=== PATIENT | female | born 1955 | race Caucasian/White ===

== ENCOUNTER 2017-03-13 14:01 | Emergency (ER) | payer OTHER ==
[~2017-03-13] VITALS: Ht 167.6 cm; Wt 106.1 kg
[~2017-03-13 14:01] MED LIST: ABAC300; ACET325 PO; ALBU90OI INH; ALPR.5 PO; AMIT50 PO; AMLO10 PO; AMLO5 PO; AMOCLA875 PO; ARIP10 PO; ASCO1ER PO; ATROVENT INH; AZIT500 PO; Albuterol2.5 MG/0.5 INH; Amitriptyline100 MG PO; B Complex1 EAC2 PO; BIOTIN1 MG PO; BISA5EC PO; BUDE6HFA INH; BUME2 PO; BUPR75 PO; CALCAVITD PO; CALGLU500 PO; CELE200; CELE200 PO; CLIN150 PO; CODACE30 PO; CODACE60 PO; CYAN1000 PO; Ceftin500 MG PO; Cipro500 MG PO; DOCU100 PO; ERGO400 PO; ESTR1; Esgic Tablet1 EACH PO; FERR325 PO; FLAX PO; FROV2.5 PO; FURO20 PO; GABA100 PO; GABA300; GABA300 PO; GLUC500 PO; HYDACE10B PO; HYDHCL25 PO; HYDR-86 PO; HYDR1TAB94 PO; HYOS.125 SL; Hydrocodone-Ap1 EA20 PO; K-Dur10 MEQ PO; LAMO100; LAMO100 PO; LAMO5 PO; LEVE500 PO; LEVO-T100 MCG PO; LEVOXYL PO; LEVSOD125 PO; LEVSOD25; LEVSOD75 PO; LEVSOD88 PO; LIDO5TP TOP; LIOT5 PO; LOPE2C PO; LORA.5; LORA.5 PO; LORA1; LORA1 PO; MAGGLU250 PO; MECL25 PO; META800 PO; MIDO5 PO; MORP15ER PO; MORPHABOND ER15 MG PO; MULVITA PO; Meribin5 MG PO; NITR.3SL; NYST100P TOP; Neurontin 300300 MG PO; Norco 10-325 T1 EACH PO; Norco 5-325 Ta1 EACH PO; OMEP10ER; OMEP10ER PO; ONDA4ODT PO; OXYACE5T PO; Omeprazole20 M1 PO; POTA10T PO; POTCHL10ER PO; PRAM.5; PRED10 PO; PRED5 PO; PROBIOTIC1 EAC1 PO; PROM25 PO; Percocet 5-3251 EACH PO; Prednisone10 MG PO; Prednisone2.5 MG PO; Prilosec Otc20 MG PO; QUET100 PO; QUET200; QUET200 PO; QUET300 PO; RANI150; RANI150 PO; ROPI.25 PO; ROPI1 PO; Ropinirole HCl0.5 MG PO; SERT100 PO; SPIR25 PO; STOMUL PO; SULTRIDS; SULTRIDS PO; TEMA15 PO; TEMA30 PO; TIZANIDINE HCL4 MG PO; TOCO400 PO; TRAM50 PO; TRIM100 PO; VALS80 PO; VICODIN 5-3001 EACH PO; VITB100 PO; VITB2 PO; Ventolin Soln3 ML INH; ZOLP10; ZOLP10 PO; ZOLP12.5 PO; ZOLP6.25 PO; Zanaflex2 M1 PO; Zanaflex4 MG PO; Zofran Odt4 MG SL; Zofran4 MG PO; [UNRECOGNIZED DRUG - CODE]; [UNRECOGNIZED DRUG - CODE] PO
[2017-03-13] MEDS ORDERED: Percocet 5-3251 EACH PO (14:47)
[2017-09-03] MEDS ORDERED: Zantac150 MG (09:21)
[2017-09-03] MEDS ORDERED: AMLO10 (09:21)
[2017-09-03] MEDS ORDERED: BUPR150ER (09:22)
[2017-09-03] MEDS ORDERED: BENZ100A (09:22)
[2017-09-03] MEDS ORDERED: NITR.4SL (09:22)
[2017-09-03] MEDS ORDERED: NYSTATIN1 EAC1 (09:22)
[2017-09-03] MEDS ORDERED: ALL DAY ALLERGY10 M1 (09:22)
[2017-09-03] MEDS ORDERED: LOSA25 (09:25)
== END 2017-03-13 15:00 | disposition home or self-care (01) ==
LOC: ER 14:01
DX: S42.292A Other displaced fracture of upper end of left humerus, initial encounter for closed fracture (principal); F31.9 Bipolar disorder, unspecified; Z88.6 Allergy status to analgesic agent; Z88.8 Allergy status to other drugs, medicaments and biological substances; Z88.1 Allergy status to other antibiotic agents; Z91.040 Latex allergy status; Z79.899 Other long term (current) drug therapy; Z90.710 Acquired absence of both cervix and uterus; W19.XXXA Unspecified fall, initial encounter
CPT/HCPCS: 29105; 73030; 73110; 99283

== ENCOUNTER 2017-03-15 10:44 | Emergency (ER) | payer OTHER ==
[~2017-03-15] VITALS: Ht 167.6 cm; Wt 104.3 kg
[2017-03-15 11:18] LABS: BASOPHILS ABSOLUTE AUTO 0.04 K/mm3 (0.00-0.23); BASOPHILS PERCENT AUTO 0 % (0-2); EOSINOPHILS ABSOLUTE AUTO 0.34 K/mm3 (0.00-0.68); EOSINOPHILS PERCENT AUTO 3 % (0-6); Hematocrit 33.9 % (33.0-51.0); Hemoglobin 10.1 g/dL (11.5-16.0); IMMATURE GRAN ABSOLUTE AUTO 0.05 K/mm3 (0.00-0.10); IMMATURE GRAN PERCENT AUTO 1 % (0-1); LYMPHOCYTES ABSOLUTE AUTO 1.69 K/mm3 (0.84-5.20); LYMPHOCYTES PERCENT AUTO 16 % (21-46); MONOCYTES ABSOLUTE AUTO 0.68 K/mm3 (0.16-1.47); MONOCYTES PERCENT AUTO 6 % (4-13); Mean Corpuscular HGB 27.8 pg (26.0-34.0); Mean Corpuscular HGB Conc 29.8 g/dL (31.5-36.5); Mean Corpuscular Volume 93 fL (80-100); Mean Platelet Volume 9.8 fL (9.1-12.4); NEUTROPHILS PERCENT AUTO 74 % (41-73); Platelet Count 172 K/mm3 (150-400); RDW Coefficient Variation 15.4 % (11.7-14.2); RDW Standard Deviation 53.3 fL (35.1-46.3); Red Blood Cell Count 3.63 M/mm3 (3.80-5.20)
[2017-03-15 11:19] LABS: PCO2 Arterial 52.2 mmHg (35-45); PO2 Arterial 112 mmHg (80-100)
[2017-03-15 11:20] LABS: pH Blood Arterial 7.25 (7.35-7.45)
[2017-03-15 11:42] LABS: Albumin/Globulin Ratio 0.8 (0.8-1.8); Bilirubin, Total 0.4 mg/dL (0.1-1.0); Calcium, Blood 8.2 mg/dL (8.5-10.1); Creatinine, Blood 3.07 mg/dL (0.40-1.00); Globulin, Blood 3.6 g/dL (2.2-4.0); Potassium, Blood 4.5 mmol/L (3.5-5.5); Total Protein, Blood 6.6 g/dL (6.4-8.2)
[2017-09-03] MEDS ORDERED: Zantac150 MG (09:21)
[2017-09-03] MEDS ORDERED: AMLO10 (09:21)
[2017-09-03] MEDS ORDERED: NITR.4SL (09:22)
[2017-09-03] MEDS ORDERED: BENZ100A (09:22)
[2017-09-03] MEDS ORDERED: BUPR150ER (09:22)
[2017-09-03] MEDS ORDERED: NYSTATIN1 EAC1 (09:22)
[2017-09-03] MEDS ORDERED: ALL DAY ALLERGY10 M1 (09:22)
[2017-09-03] MEDS ORDERED: LOSA25 (09:25)
== END 2017-03-15 14:27 | disposition home or self-care (01) ==
LOC: ER 10:44
PROVIDERS: Emergency Medicine
DX: T40.2X1A Poisoning by other opioids, accidental (unintentional), initial encounter (principal); I10 Essential (primary) hypertension; N28.9 Disorder of kidney and ureter, unspecified; G20 Parkinson's disease; F31.9 Bipolar disorder, unspecified; Z88.6 Allergy status to analgesic agent; Z88.1 Allergy status to other antibiotic agents; Z91.040 Latex allergy status; Z88.8 Allergy status to other drugs, medicaments and biological substances; Z79.899 Other long term (current) drug therapy; Z79.891 Long term (current) use of opiate analgesic
CPT/HCPCS: 36600; 70450; 71045; 80053; 82803; 85025; 96361; 96374; 99284; G0480; J2310; J7030

== ENCOUNTER 2017-04-27 16:05 | Emergency (ER) | payer OTHER ==
[~2017-04-27] VITALS: Ht 165.1 cm; Wt 101.6 kg
[2017-09-03] MEDS ORDERED: AMLO10 (09:21)
[2017-09-03] MEDS ORDERED: Zantac150 MG (09:21)
[2017-09-03] MEDS ORDERED: BUPR150ER (09:22)
[2017-09-03] MEDS ORDERED: BENZ100A (09:22)
[2017-09-03] MEDS ORDERED: NYSTATIN1 EAC1 (09:22)
[2017-09-03] MEDS ORDERED: NITR.4SL (09:22)
[2017-09-03] MEDS ORDERED: ALL DAY ALLERGY10 M1 (09:22)
[2017-09-03] MEDS ORDERED: LOSA25 (09:25)
== END 2017-04-27 17:46 | disposition home or self-care (01) ==
LOC: ER 16:05
DX: J06.9 Acute upper respiratory infection, unspecified (principal); J44.9 Chronic obstructive pulmonary disease, unspecified; I12.9 Hypertensive chronic kidney disease with stage 1 through stage 4 chronic kidney disease, or unspecified chronic kidney disease; N18.9 Chronic kidney disease, unspecified; F31.9 Bipolar disorder, unspecified; E03.9 Hypothyroidism, unspecified; E66.01 Morbid (severe) obesity due to excess calories; K21.9 Gastro-esophageal reflux disease without esophagitis; Z79.899 Other long term (current) drug therapy; Z68.37 Body mass index [BMI] 37.0-37.9, adult
CPT/HCPCS: 71046; 93005; 93010; 99283

== ENCOUNTER 2017-05-11 23:27 | Observation (INO) | payer OTHER ==
[~2017-05-11] VITALS: Ht 167.6 cm; Wt 105.5 kg
[2017-05-11 23:47] LABS: BASOPHILS ABSOLUTE AUTO 0.02 K/mm3 (0.00-0.23); BASOPHILS PERCENT AUTO 0 % (0-2); EOSINOPHILS ABSOLUTE AUTO 0.05 K/mm3 (0.00-0.68); EOSINOPHILS PERCENT AUTO 1 % (0-6); Hematocrit 30.9 % (33.0-51.0); Hemoglobin 9.1 g/dL (11.5-16.0); IMMATURE GRAN ABSOLUTE AUTO 0.09 K/mm3 (0.00-0.10); IMMATURE GRAN PERCENT AUTO 1 % (0-1); LYMPHOCYTES ABSOLUTE AUTO 0.53 K/mm3 (0.84-5.20); LYMPHOCYTES PERCENT AUTO 5 % (21-46); MONOCYTES ABSOLUTE AUTO 0.39 K/mm3 (0.16-1.47); MONOCYTES PERCENT AUTO 4 % (4-13); Mean Corpuscular HGB 28.1 pg (26.0-34.0); Mean Corpuscular HGB Conc 29.4 g/dL (31.5-36.5); Mean Corpuscular Volume 95 fL (80-100); NEUTROPHILS ABSOLUTE AUTO 9.42 K/mm3 (1.96-9.15); NEUTROPHILS PERCENT AUTO 90 % (41-73); Platelet Count 184 K/mm3 (150-400); RDW Coefficient Variation 14.4 % (11.7-14.2); RDW Standard Deviation 50.6 fL (35.1-46.3); Red Blood Cell Count 3.24 M/mm3 (3.80-5.20)
[2017-05-12 00:09] LABS: Alanine Aminotransfer (ALT/SGP 17 U/L (12-78); Albumin/Globulin Ratio 0.6 (0.8-1.8); Alk Phos 121 U/L (50-136); Anion Gap 11 mmol/L (6-16); Aspartate Aminotrans (AST/SGOT 34 U/L (12-37); Bilirubin, Total 0.3 mg/dL (0.1-1.0); Blood Urea Nitrogen 36 mg/dL (8-24); CO2, Blood 19 mmol/L (21-32); CPK Creatine Kinase 530 U/L (26-193); Calcium, Blood 6.9 mg/dL (8.5-10.1); Chloride, Blood 107 mmol/L (98-108); Ethanol (Alcohol), Blood, Med <3 mg/dL; Globulin, Blood 3.2 g/dL (2.2-4.0); Glomerular Filtration Rate 22 (60-); Glucose, Blood 99 mg/dL (70-99); Potassium, Blood 4.6 mmol/L (3.5-5.5); Sodium, Blood 137 mmol/L (136-145); Total Protein, Blood 5.2 g/dL (6.4-8.2)
[2017-05-12 00:16] LABS: Free Thyroxine 0.68 ng/dL (0.70-1.60); Triiodothyronine, Free 1.55 pg/mL (2.18-3.98)
[2017-05-12 00:23] LABS: Source, Urine Clean Catch
[2017-05-12 00:26] LABS: Bilirubin, Urine Neg (Neg); Blood, Urine Neg (Neg); Glucose Qualitative, Urine Neg (Neg); Ketones, Urine Neg (Neg); Leukocyte Esterase, Urine Neg (Neg); Nitrite, Urine Neg (Neg); Protein, Urine Neg (Neg); Urobilinogen, Urine NORM (Normal)
[2017-05-12 00:31] LABS: Appearance, Urine Clear (Clear); Color, Urine Yellow (P-Yellow)
[2017-05-12 00:33] LABS: Creatine Kinase MB 2.9 ng/mL (0.0-3.6); Creatine Kinase MB Index 0.5 (0.0-4.0)
[2017-05-12 00:37] LABS: U Amphetamine Screen Not Detected; U Barbituate Screen Not Detected; U Benzodiazapine Screen Not Detected; U Buprenorphine Screen Not Detected; U Cannabinoids Screen Not Detected; U Cocaine Screen Not Detected; U Methadone Screen Not Detected; U Methamphetamine Screen Not Detected; U Opiates Screen DETECTED; U Oxycodone Screen Not Detected; U Phencyclidine Screen Not Detected; U Propoxyphene Screen Not Detected
[2017-05-12] MEDS ORDERED: Zanaflex2 M1 PO (04:35)
[2017-05-12] MEDS ORDERED: MORP15ER PO (04:37)
[2017-05-12] MEDS ORDERED: AMIT50 PO (04:39)
[2017-05-12] MEDS ORDERED: TRIM100 PO (04:40)
[2017-05-12] MEDS ORDERED: HYDR-86 PO (04:42)
[2017-05-12 09:43] LABS: Albumin, Blood 2.4 g/dL (3.4-5.0); Anion Gap 8 mmol/L (6-16); Blood Urea Nitrogen 37 mg/dL (8-24); Bun/Creatinine Ratio 16.8 (12.0-20.0); CO2, Blood 23 mmol/L (21-32); Calcium, Blood 7.8 mg/dL (8.5-10.1); Chloride, Blood 105 mmol/L (98-108); Glomerular Filtration Rate 24 (60-); Glucose, Blood 96 mg/dL (70-99); Phosphorus, Blood 4.9 mg/dL (2.5-4.9); Potassium, Blood 4.3 mmol/L (3.5-5.5); Sodium, Blood 136 mmol/L (136-145)
[2017-05-13 04:26] LABS: BASOPHILS ABSOLUTE AUTO 0.03 K/mm3 (0.00-0.23); BASOPHILS PERCENT AUTO 0 % (0-2); EOSINOPHILS ABSOLUTE AUTO 0.48 K/mm3 (0.00-0.68); EOSINOPHILS PERCENT AUTO 6 % (0-6); Hematocrit 27.9 % (33.0-51.0); Hemoglobin 8.6 g/dL (11.5-16.0); IMMATURE GRAN ABSOLUTE AUTO 0.03 K/mm3 (0.00-0.10); IMMATURE GRAN PERCENT AUTO 0 % (0-1); LYMPHOCYTES ABSOLUTE AUTO 1.44 K/mm3 (0.84-5.20); LYMPHOCYTES PERCENT AUTO 17 % (21-46); MONOCYTES ABSOLUTE AUTO 0.62 K/mm3 (0.16-1.47); MONOCYTES PERCENT AUTO 7 % (4-13); Mean Corpuscular HGB 28.5 pg (26.0-34.0); Mean Corpuscular HGB Conc 30.8 g/dL (31.5-36.5); Mean Platelet Volume 9.7 fL (9.1-12.4); NEUTROPHILS ABSOLUTE AUTO 5.78 K/mm3 (1.96-9.15); NEUTROPHILS PERCENT AUTO 69 % (41-73); Platelet Count 191 K/mm3 (150-400); RDW Coefficient Variation 14.2 % (11.7-14.2); RDW Standard Deviation 48.3 fL (35.1-46.3); Red Blood Cell Count 3.02 M/mm3 (3.80-5.20); White Blood Cell Count 8.38 K/mm3 (4.00-11.30)
[2017-05-13 04:27] LABS: Mean Corpuscular Volume 92 fL (80-100)
[2017-05-13 04:42] LABS: Bun/Creatinine Ratio 18.4 (12.0-20.0); Calcium, Blood 7.7 mg/dL (8.5-10.1); Creatinine, Blood 1.47 mg/dL (0.40-1.00); Potassium, Blood 4.2 mmol/L (3.5-5.5)
[2017-09-03] MEDS ORDERED: Zantac150 MG (09:21)
[2017-09-03] MEDS ORDERED: AMLO10 (09:21)
[2017-09-03] MEDS ORDERED: ALL DAY ALLERGY10 M1 (09:22)
[2017-09-03] MEDS ORDERED: BUPR150ER (09:22)
[2017-09-03] MEDS ORDERED: NYSTATIN1 EAC1 (09:22)
[2017-09-03] MEDS ORDERED: BENZ100A (09:22)
[2017-09-03] MEDS ORDERED: NITR.4SL (09:22)
[2017-09-03] MEDS ORDERED: LOSA25 (09:25)
== END 2017-05-13 16:56 | disposition home or self-care (01) ==
LOC: ER 23:27 → MEDS 23:28
PROVIDERS: Emergency Medicine; Internal Medicine
DX: G93.41 Metabolic encephalopathy (principal); T40.2X1A Poisoning by other opioids, accidental (unintentional), initial encounter; I12.9 Hypertensive chronic kidney disease with stage 1 through stage 4 chronic kidney disease, or unspecified chronic kidney disease; N18.4 Chronic kidney disease, stage 4 (severe); N17.9 Acute kidney failure, unspecified; G89.4 Chronic pain syndrome; F31.9 Bipolar disorder, unspecified; G20 Parkinson's disease; M19.90 Unspecified osteoarthritis, unspecified site; M79.7 Fibromyalgia; R41.82 Altered mental status, unspecified; J18.9 Pneumonia, unspecified organism; E86.0 Dehydration; Z74.09 Other reduced mobility; Z88.1 Allergy status to other antibiotic agents; Z88.8 Allergy status to other drugs, medicaments and biological substances; Z91.040 Latex allergy status; Z79.891 Long term (current) use of opiate analgesic; Z79.899 Other long term (current) drug therapy; Z23 Encounter for immunization
CPT/HCPCS: 36415; 51702; 70450; 71045; 80048; 80053; 80069; 81003; 82140; 82550; 82553; 83605; 83880; 84439; 84443; 84481; 84484; 85025; 87040; 93005; 93010; 94640; 94760; 96361; 96365; 96366; 96372; 96375; 96376; 99285; C9113; G0008; G0378; G0480; J1644; J3370; J7030; J7050; Q2038

== ENCOUNTER 2017-06-30 12:25 | Emergency (ER) | payer OTHER ==
[~2017-06-30] VITALS: Ht 162.6 cm; Wt 108.9 kg
[2017-06-30 13:05] LABS: BASOPHILS ABSOLUTE AUTO 0.04 K/mm3 (0.00-0.23); BASOPHILS PERCENT AUTO 1 % (0-2); EOSINOPHILS ABSOLUTE AUTO 0.34 K/mm3 (0.00-0.68); EOSINOPHILS PERCENT AUTO 5 % (0-6); Hematocrit 30.7 % (33.0-51.0); Hemoglobin 9.6 g/dL (11.5-16.0); IMMATURE GRAN ABSOLUTE AUTO 0.02 K/mm3 (0.00-0.10); IMMATURE GRAN PERCENT AUTO 0 % (0-1); LYMPHOCYTES ABSOLUTE AUTO 1.65 K/mm3 (0.84-5.20); LYMPHOCYTES PERCENT AUTO 24 % (21-46); MONOCYTES ABSOLUTE AUTO 0.47 K/mm3 (0.16-1.47); MONOCYTES PERCENT AUTO 7 % (4-13); Mean Corpuscular HGB 28.7 pg (26.0-34.0); Mean Corpuscular HGB Conc 31.3 g/dL (31.5-36.5); Mean Corpuscular Volume 92 fL (80-100); Mean Platelet Volume 9.8 fL (9.1-12.4); NEUTROPHILS ABSOLUTE AUTO 4.43 K/mm3 (1.96-9.15); NEUTROPHILS PERCENT AUTO 64 % (41-73); Platelet Count 202 K/mm3 (150-400); RDW Coefficient Variation 14.2 % (11.7-14.2); RDW Standard Deviation 47.9 fL (35.1-46.3); Red Blood Cell Count 3.35 M/mm3 (3.80-5.20); White Blood Cell Count 6.95 K/mm3 (4.00-11.30)
[2017-06-30 13:25] LABS: Albumin, Blood 2.9 g/dL (3.4-5.0); Albumin/Globulin Ratio 0.8 (0.8-1.8); Bilirubin, Total 0.2 mg/dL (0.1-1.0); Bun/Creatinine Ratio 14.6 (12.0-20.0); Calcium, Blood 8.5 mg/dL (8.5-10.1); Creatinine, Blood 1.23 mg/dL (0.40-1.00); Globulin, Blood 3.7 g/dL (2.2-4.0); Potassium, Blood 4.3 mmol/L (3.5-5.5); Total Protein, Blood 6.6 g/dL (6.4-8.2)
[2017-06-30] MEDS ORDERED: HYDR1TAB94 PO (14:04)
[2017-06-30] MEDS ORDERED: CLON.1 PO (14:04)
[2017-06-30] MEDS ORDERED: Omeprazole20 M1 (14:04)
[2017-06-30 14:52] LABS: U Amphetamine Screen Not Detected; U Barbituate Screen Not Detected; U Benzodiazapine Screen Not Detected; U Buprenorphine Screen Not Detected; U Cannabinoids Screen Not Detected; U Cocaine Screen Not Detected; U Methadone Screen Not Detected; U Methamphetamine Screen Not Detected; U Opiates Screen DETECTED; U Oxycodone Screen Not Detected; U Phencyclidine Screen Not Detected; U Propoxyphene Screen Not Detected
== END 2017-06-30 15:54 | disposition home or self-care (01) ==
LOC: ER 12:25
PROVIDERS: Emergency Medicine
DX: R25.3 Fasciculation (principal); G24.01 Drug induced subacute dyskinesia; F19.90 Other psychoactive substance use, unspecified, uncomplicated; Z88.6 Allergy status to analgesic agent; Z88.8 Allergy status to other drugs, medicaments and biological substances; Z88.1 Allergy status to other antibiotic agents; Z91.040 Latex allergy status; Z79.899 Other long term (current) drug therapy; Z79.891 Long term (current) use of opiate analgesic; F31.9 Bipolar disorder, unspecified; I10 Essential (primary) hypertension
CPT/HCPCS: 36415; 70450; 80053; 85025; 85730; 99284

== ENCOUNTER → 2018-02-22 | Outpatient (CLI) | payer OTHER ==
[~2018-02-22] MED LIST changes: +ALL DAY ALLERGY10 M1; +AMLO10; +BENZ100A; +BUPR150ER; +CLON.1 PO; +LOSA25; +NITR.4SL; +NYSTATIN1 EAC1; +Omeprazole20 M1; +Zantac150 MG
[2018-02-22 11:49] LABS: BASOPHILS ABSOLUTE AUTO 0.05 K/mm3 (0.00-0.23); BASOPHILS PERCENT AUTO 1 % (0-2); EOSINOPHILS ABSOLUTE AUTO 0.46 K/mm3 (0.00-0.68); EOSINOPHILS PERCENT AUTO 5 % (0-6); Hematocrit 34.4 % (33.0-51.0); Hemoglobin 10.9 g/dL (11.5-16.0); IMMATURE GRAN ABSOLUTE AUTO 0.18 K/mm3 (0.00-0.10); IMMATURE GRAN PERCENT AUTO 2 % (0-1); LYMPHOCYTES ABSOLUTE AUTO 2.18 K/mm3 (0.84-5.20); LYMPHOCYTES PERCENT AUTO 26 % (21-46); MONOCYTES ABSOLUTE AUTO 0.61 K/mm3 (0.16-1.47); MONOCYTES PERCENT AUTO 7 % (4-13); Mean Corpuscular HGB 29.3 pg (26.0-34.0); Mean Corpuscular HGB Conc 31.7 g/dL (31.5-36.5); Mean Corpuscular Volume 93 fL (80-100); Mean Platelet Volume 9.8 fL (9.1-12.4); NEUTROPHILS ABSOLUTE AUTO 5.06 K/mm3 (1.96-9.15); NEUTROPHILS PERCENT AUTO 59 % (41-73); Platelet Count 246 K/mm3 (150-400); RDW Coefficient Variation 13.5 % (11.7-14.2); RDW Standard Deviation 46.2 fL (35.1-46.3); Red Blood Cell Count 3.72 M/mm3 (3.80-5.20); White Blood Cell Count 8.54 K/mm3 (4.00-11.30)
[2018-02-22 12:02] LABS: Albumin, Blood 3.7 g/dL (3.4-5.0); Albumin/Globulin Ratio 1.1 (0.8-1.8); Bilirubin, Total 0.3 mg/dL (0.1-1.0); Bun/Creatinine Ratio 15.2 (12.0-20.0); Calcium, Blood 8.6 mg/dL (8.5-10.1); Creatinine, Blood 1.65 mg/dL (0.40-1.00); Globulin, Blood 3.5 g/dL (2.2-4.0); Potassium, Blood 4.7 mmol/L (3.5-5.5); Total Protein, Blood 7.2 g/dL (6.4-8.2)
== END | disposition home or self-care (01) ==
LOC: LAB 11:00 → LAB SHORT 11:00
PROVIDERS: Nurse Practitioner
DX: R10.9 Unspecified abdominal pain (principal); R05 Cough
CPT/HCPCS: 80053; 85025